=== PATIENT | female | born 1975 | race Caucasian/White ===

== ENCOUNTER 2024-07-06 11:33 | Emergency (ER) | payer OTHER, SELFPAY ==
[2024-07-06 11:34] VITALS: BP 165/97; PULSE 98; RESP 16; TEMP 36.4; O2SAT 97; BMI 47.3
[2024-07-06 11:37] VITALS: BP 165/97; PULSE 97; RESP 16; TEMP 36.4; O2SAT 98
--- NOTE | 2024-07-06 13:05 | CT_ITS ---
STUDY: CT ABDOMEN AND PELVIS WITH CONTRAST REASON FOR EXAM: Female, 49 years old. Nausea, vomiting, diarrhea RADIATION DOSAGE (If Supplied By Facility): CTDIvol = ( 15.91 ) mGy, DLP = ( 1318.07 ) mGycm TECHNIQUE: IV 100mL Isovue-300 was administered. Transaxial images were obtained from the dome of the diaphragm to the symphysis pubis. Multiplanar coronal and sagittal images were reformatted. The protocol utilizes one or more of the following dose reduction techniques: automated exposure control, adjustment of mA and/or kV according to patient size,and/or use of iterative reconstruction technique. COMPARISON: No relevant prior comparison study available FINDINGS: The visualized lung bases are unremarkable. The visualized portions of the heart are within normal limits. Mild hepatic steatosis. No focal lesion is seen. There are surgical clips in the gallbladder fossa consistent with a prior cholecystectomy. Normal spleen. Normal pancreas. Normal bilateral adrenal glands. Normal visualized stomach. Nonspecific fluid-filled small bowel loops without evidence of bowel obstruction. The ascending colon is also fluid-filled. No evidence of acute diverticulitis. The appendix appears to be unremarkable. Normal abdominal aorta. No retroperitoneal adenopathy. Normal right kidney. Normal left kidney. Normal urinary bladder. There is absence of the uterus consistent with a prior hysterectomy. 2.5 cm cystic lesion left adnexa. No free fluid. Normal abdominal wall. No demonstrated acute osseous changes. CT/Abdomen/Pelvis W IV Cont ONLY IMPRESSION: 1. Nonspecific fluid-filled small bowel loops and ascending colon. Enteritis is possible. 2. Mild hepatic steatosis. 3. Status post cholecystectomy and hysterectomy Electronically Signed: Joseph Whiteside MD at 15:09 EST ,
--- NOTE | 2024-07-06 13:13 | EDS_ITS ---
HPI History of Present Illness Chief Complaint: Nausea/Vomiting/Diarrhea Narrative Narrative: 49-year-old female states she has had nausea, vomiting, and diarrhea for the last 14 hours. She thinks her symptoms may have began Saturday night. All day Saturday, she started vomiting but only vomited a few times. It is more constant diarrhea and loose/watery stool. She states she feels lightheaded and dizzy and generalized weakness, feels like she is dehydrated. Past abdominal surgery does include cholecystectomy and hysterectomy. She denies any dysuria or hematuria, no exacerbating or alleviating factors. No recent antibiotics. [facility] Medical History Carpal tunnel syndrome MTHFR mutation (methylenetetrahydrofolate reductase) Prediabetes Fibromyalgia Lupus Hypertension Home Medications ?Medication ?Instructions ?Recorded ?Last Taken ?Type duloxetine 20 mg capsule,delayed 20 mg PO DAILY 07/06/24 Unknown History release (Cymbalta) estradiol 0.1 mg/24 hr semiweekly patch transdermal 07/06/24 Unknown History transdermal patch (Paty) hydroxychloroquine 200 mg tablet 200 mg PO BID 07/06/24 Unknown History (Plaquenil) lisinopril 5 mg tablet 5 mg PO DAILY 07/06/24 Unknown History metformin 500 mg tablet 500 mg PO BID 07/06/24 Unknown History pantoprazole 40 mg tablet,delayed 40 mg PO DAILY 07/06/24 Unknown History release (Protonix) pregabalin 25 mg capsule (Lyrica) 25 mg PO QHS 07/06/24 Unknown History Allergy/AdvReac Type Severity Reaction Status Date / Time No Known Allergies Allergy Verified 07/06/24 11:37 Surgical History History of ankle surgery History of cholecystectomy History of partial hysterectomy Social History Smoking Status: Never smoker ROS ROS ED ROS Narrative Constitutional: No fever, no chills. HEENT: No sore throat. No neck pain. No loss of vision. No rhinorrhea. Cardiovascular: No chest pain. No palpitations. No pedal edema. Respiratory: No cough, no shortness of breath. However, feels like she has to cough at times. Abdominal: Positive diffuse abdominal pain. Positive nausea and vomiting. Multiple episodes of loose, watery stool/diarrhea. Genitourinary: No dysuria. No hematuria. Musculoskeletal: No myalgias. No arthralgias. Positive low back pain/pressure. Neurologic: No headaches. No dizziness. No lightheadedness. Skin: No rash. No change in color. Psychiatric: No depression. No anxiety. EXAM Physical Exam Narrative Exam Narrative: Afebrile. Vital signs noted. HEENT shows moist mucous membranes. PERRL, EOMI. Cardiovascular examination regular rate and rhythm. Lungs clear to auscultation bilaterally. Abdomen soft and nontender with positive bowel sounds. No guarding or rebound. No CVA tenderness to percussion. Neurological examination nonfocal and nonlateralizing. Const Vital Signs: 07/06/24 11:34 07/06/24 11:37 07/06/24 13:20 Temperature 97.5 F L 97.5 F L Temperature Source Oral Oral Pulse Rate 98 97 80 Respiratory Rate 16 16 15 Blood Pressure 165/97 H 165/97 H 154/99 H Blood Pressure Mean 119 119 117 Pulse Ox 97 98 97 Oxygen Delivery Method Room Air Room Air Room Air MDM MDM MDM Narrative Medical decision making narrative: Differential diagnosis includes but not limited to gastroenteritis versus colitis versus UTI versus pyelonephritis. I have low suspicion for pancreatitis. Comprehensive workup was pursued. I do feel that she needs CT imaging. This would also help rule out any obstruction. I reviewed her laboratory work that is returned thus far and she has normal white count of 9.2 with hemoglobin 14.2, hematocrit 43.9, platelet count 264. Electrolyte panel demonstrates chloride of 111 which I think is nonspecific, normal sodium of 138 potassium 3.6, BUN of 10 and creatinine 0.64, no dehydration. Glucose elevated at 100 with LFTs grossly unremarkable. Lipase normal at 21 so I doubt pancreatitis. Her urinalysis and CT are still pending. She requested something for her abdominal pain so she was given Bentyl 20 mg orally. Repeat examination at approximately 2:50 PM shows her resting comfortably on the cot. She states she feels no better, but no worse. At this point in time, son is her CT of the abdomen pelvis and urinalysis are checked and unremarkable I feel she might be able to be discharged safely home with follow-up. Patient signed out to the oncoming physician to check the CT and urinalysis to make final disposition on this patient which I anticipate his discharge. Final disposition pending. Patient is stable condition. History & Record Review Discussion w/independent historian: Patient Additional record(s) reviewed:: No prior records Lab Data Attestation: I reviewed the patient's lab results. Labs: Laboratory Results - last 24 hr 07/06/24 13:13 WBC 9.2 RBC 5.22 Hgb 14.2 Hct 43.9 MCV 84.1 MCH 27.2 MCHC 32.3 RDW Std Deviation 41.3 RDW Coeff of Denise 13.5 Plt Count 264 MPV 10.5 Immature Gran % (Auto) 0.300 Neut % (Auto) 61.4 Lymph % (Auto) 24.1 [place] % (Auto) 9.4 Eos % (Auto) 4.6 Baso % (Auto) 0.2 Absolute Neuts (auto) 5.6 Absolute Lymphs (auto) 2.21 Nucleated RBC % 0 Sodium 138 Potassium 3.6 Chloride 111 H Carbon Dioxide 23.0 Anion Gap 4 L BUN 10 Creatinine 0.64 Estim Creat Clear Calc 137.62 Est GFR (MDRD) Af Amer 126 Est GFR (MDRD) Non-Af 104 BUN/Creatinine Ratio 15.6 Glucose 100 Calcium 8.3 L Total Bilirubin 0.20 AST 16 ALT 23 Alkaline Phosphatase 63 Total Protein 7.0 Albumin 3.4 Globulin 3.6 Albumin/Globulin Ratio 0.9 Lipase 21 Discharge Plan Triage Chief Complaint: Nausea/Vomiting/Diarrhea ED Provider: Yazan Ferrer Dx/Rx/DC Orders Clinical Impression: Nausea, vomiting, and diarrhea, Abdominal pain, Lightheadedness Instructions: ED Abdominal Pain Unkn Cause Fem, ED Gastroenteritis, Viral (Adult) Prescriptions: No Action hydroxychloroquine [Plaquenil] 200 mg tablet 200 mg PO BID pantoprazole [Protonix] 40 mg tablet,delayed release (DR/EC) 40 mg PO DAILY duloxetine [Cymbalta] 20 mg capsule,delayed release(DR/EC) 20 mg PO DAILY estradiol [Paty] 0.1 mg/24 hr patch semiweekly transdermal lisinopril 5 mg tablet 5 mg PO DAILY pregabalin [Lyrica] 25 mg capsule 25 mg PO QHS metformin 500 mg tablet 500 mg PO BID Primary Care Provider: Newton Cole Referrals: Newton Cole MD [Primary Care Provider] - 3-5 Days if not improving Jeanne Barrientos [employer], [employer] [Non-Staff] - Print Language: Kyrgyz
[2024-07-06] MEDS: 0.9% Normal Saline (1000mL) 1,000 ML 999 ML IV (13:17)
[2024-07-06] MEDS: Ondansetron 4 MG/2 ML Vial IV (13:17)
[2024-07-06 13:20] VITALS: BP 154/99; PULSE 80; RESP 15; O2SAT 97
[2024-07-06 13:22] LABS: Absolute Lymphocyte Count 2.21 X10^3/uL (0.83-4.51); Absolute Neutrophil Count 5.6 X10^3/uL (2.0-7.7); Basophil# 0.02 X10^3/uL; Basophil% 0.2 % (0-1); Eosinophil# 0.42 X10^3/uL; Eosinophils% 4.6 % (0-5); Hematocrit 43.9 % (37-47); Hemoglobin 14.2 g/dL (12.0-15.0); Lymphocyte # 2.21 X10^3/ul (0.83-4.51); Lymphocyte % 24.1 % (19-41); Mean Corp Hgb Conc 32.3 g/dL (32-36); Mean Corpuscular Hgb 27.2 pg (27.0-32.0); Mean Corpuscular Volume 84.1 fL (81-99); Mean Platelet Vol. 10.5 fl (6.2-12.0); Monocyte# 0.86 X10^3/uL; Monocyte% 9.4 % (0-10); NRBC Flagged by Analyzer 0 % (0-5); Neutrophil # 5.64 X10^3/uL (2.7-7.7); Neutrophil % 61.4 % (47-70); Platelet Count 264 K/mm3 (150-450); RBC Distribution Width CV 13.5 % (11.6-14.6); RBC Distribution Width SD 41.3 fl (35.1-43.9); Red Blood Count 5.22 M/mm3 (4.2-5.4); White Blood Count 9.2 K/mm3 (4.4-11.0)
[2024-07-06 13:38] LABS: ALB/GLOB Ratio 0.9 RATIO (0.9-2.4); AST(SGOT) 16 U/L (15-37); Alanine Aminotransfer ALT/SGPT 23 U/L (13-56); Albumin, Serum 3.4 g/dL (3.2-5.0); Alkaline Phosphatase 63 U/L (45-117); Anion Gap 4 (5-15); BUN 10 mg/dL (7-18); BUN/Creat Ratio 15.6 RATIO (10-20); Calcium,Total 8.3 mg/dL (8.5-10.1); Chloride 111 mmol/L (98-107); Creatinine, Serum 0.64 mg/dL (0.55-1.02); EST Glomerular Filtration Rate 104 mL/min (>60); Est Glom Filt Rate - Afr Amer 126 mL/min (>60); Estimated Creatinine Clearance 137.62 ml/min; Globulin 3.6 g/dL (2.2-4.2); Glucose 100 mg/dL (74-106); Lipase 21 U/L (13-75); Potassium 3.6 mmol/L (3.5-5.1); Sodium Level 138 mmol/L (136-145)
[2024-07-06] MEDS: Dicyclomine 10 MG Capsule 20 MG PO (14:56)
[2024-07-06 15:00] VITALS: BP 150/92; PULSE 89; RESP 18; O2SAT 97
[2024-07-06 15:00] LABS: Red Blood Cells-Urine 0 SEEN /hpf (0-5); White Blood Cells 0 SEEN /hpf (0-5)
[2024-07-06 15:20] LABS: Color, Urine Yellow (Yellow); Glucose, Dipstick Normal (Normal); Ketone-Dipstick Negative (Negative); Leukocyte Esterase-Dipstick 25 /ul (Negative); Nitrite-Dipstick Negative (Negative); Occult Blood-Urine 10 /ul (Negative); Protein-Dipstick 30 mg/dl (Negative); Specific Gravity, Urine 1.025 (1.002-1.030); Urine Bilirubin Dipstick 1 mg/dL (Negative); Urine Clarity Sl. Cloudy (Clear); Urine Urobilinogen 1 mg/dl (Normal)
[2024-07-06 15:22] LABS: Bacteria 1+ /hpf (None Seen); Mucous, Urine 1+ /hpf (<or=2+); Squamous Epithelial Cells - UA 0-5 SEEN /hpf (5-10)
[2024-07-06 17:00] VITALS: BP 141/89; PULSE 86; RESP 16; O2SAT 97
== END 2024-07-06 17:37 | disposition home or self-care (01) ==
PROVIDERS: Emergency Medicine; Emergency Provider Surgery; PCP Family Medicine; Visit Provider Surgery
DX: R11.2 Nausea with vomiting, unspecified (principal); R19.7 Diarrhea, unspecified; R10.9 Unspecified abdominal pain; R42 Dizziness and giddiness; I10 Essential (primary) hypertension; Z79.899 Other long term (current) drug therapy; Z79.84 Long term (current) use of oral hypoglycemic drugs
CPT/HCPCS: 74177; 80053; 81001; 83690; 85025; 87077; 87086; 87088; 87186; 96361; 96374; 96376; 99283; Q9967; A4216; J2405